=== PATIENT | female | born 1950 | race Two or more races ===

== ENCOUNTER 2021-05-29 18:23 | Emergency (ER) | payer MEDICARE, OTHER ==
[~2021-05-29] VITALS: Ht 147.3 cm; Wt 80.1 kg
--- NOTE | 2021-05-29 18:27 | PHYS DOC ---
General Adult HPI: HPI: ".. My Lt ear is hurting.. I had been cleaning it with cotton tips... " " It started on Friday.. and has not gotten any better..." Patient is a 70 year old female who presents with above hx and complaints of Lt ear pain. Patient has escorted left ear canal. There is some small amount of fluid behind both TMs. But no signs of infection. No history of travel. No history of immunosuppression. Has had COVID vaccination twice but more during a. Has not had flu vaccination as yet. Patient normally follows with Dr. Lc Rodrigues at [facility]. Review of Systems: Review of Systems: Constitutional: Denies fever or chills Eyes: Denies change in visual acuity HENT: Complains of left ear pain Respiratory: Denies cough or shortness of breath Cardiovascular: Denies chest pain or edema GI: Denies abdominal pain, nausea, vomiting, bloody stools or diarrhea : Denies dysuria Musculoskeletal: Denies back pain or joint pain Integument: Denies rash Neurologic: Denies headache, focal weakness or sensory changes Endocrine: Denies polyuria or polydipsia Lymphatic: Denies swollen glands Psychiatric: Denies depression or anxiety Family History: Family History: -Patient is in room 1 for chronic pain syndrome -noncontributory to presentation Current Medications: Current Meds: See nursing for home meds Allergies: Allergies: No known drug allergies. Physical Exam: PE: Constitutional: acute distress, non-toxic appearance. [] HENT: Normocephalic, atraumatic, right external ears normal, oropharynx moist, no oral exudates, nose normal. Excoriated left ear canal Eyes: PERRLA, EOMI, conjunctiva normal, no discharge. [] Neck: Normal range of motion, no tenderness, supple, no stridor. [] Cardiovascular:Heart rate regular rhythm, no murmur [] Lungs & Thorax: Bilateral breath sounds clear to auscultation [] Abdomen: Bowel sounds normal, soft, no tenderness, no masses, no pulsatile masses. [] Obese Skin: Warm, dry, no erythema, no rash. [] Back: No tenderness, no CVA tenderness. [] Extremities: No tenderness, no cyanosis, no clubbing, ROM intact, no edema. [] Neurologic: Alert and oriented X 3, normal motor function, normal sensory function, no focal deficits noted. [] Psychologic: Affect anxious, judgement normal, mood normal. [] EKG: EKG: [] Radiology/Procedures: Radiology/Procedures: [] Heart Score: C/O Chest Pain: N/A Risk Factors: Risk Factors: DM, Current or recent (<one month) smoker, HTN, HLP, family history of CAD, obesity. Risk Scores: Score 0 - 3: 2.5% MACE over next 6 weeks - Discharge Home Score 4 - 6: 20.3% MACE over next 6 weeks - Admit for Clinical Observation Score 7 - 10: 72.7% MACE over next 6 weeks - Early Invasive Strategies Course & Med Decision Making: Course & Med Decision Making Pertinent Labs and Imaging studies reviewed. (See chart for details) Do not use Q-tips in ear. Use Cortisporin eardrops 2 drops 4 times a day to the left ear. May also do some right ear if you are having problems in that ear. Tylenol and ibuprofen for pain. Follow-up primary care. Return if any concerns. Impression: 1. External otitis-excoriation from cleaning [] Keyshawn Disclaimer: Keyshawn Disclaimer: This electronic medical record was generated, in whole or in part, using a voice recognition dictation system. Departure Departure: Referrals: BERNARD GREER (PCP) Keyshawn Disclaimer This chart was dictated in whole or in part using Voice Recognition software in a busy, high-work load, and often noisy Emergency Department environment. It may contain unintended and wholly unrecognized errors or omissions. SHEEBA HERNANDEZ MD May 29, 2021 18:27
[2021-05-29] MEDS ORDERED: NEOMYCIN/POLYMYXIN/HC OTIC SUSPENSION 10ML BOTTLE. ONE (19:13)
== END 2021-05-29 19:21 | disposition home or self-care (01) ==
LOC: ER 18:23
DX: S00.412A Abrasion of left ear, initial encounter (principal); H60.92 Unspecified otitis externa, left ear; X58.XXXA Exposure to other specified factors, initial encounter; Y93.89 Activity, other specified; Y92.89 Other specified places as the place of occurrence of the external cause; Y99.8 Other external cause status
CPT/HCPCS: 99282